=== PATIENT | male | born 1960 | race African-American/Black ===

== ENCOUNTER 2022-01-15 13:30 | Emergency (ER) | payer OTHER ==
[~2022-01-15] VITALS: Ht 182.9 cm; Wt 120.0 kg
[2022-01-15] MEDS ORDERED: FLUORESCEIN SODIUM 1MG/STRIP BOTHEYE ONE (16:30)
[2022-01-15] MEDS ORDERED: TETRACAINE 0.5% OPHTH DROPS 4ML BOTHEYE ONE (16:30)
[2022-01-15 17:50] VITALS: BP 101/58
== END 2022-01-15 17:50 | disposition home or self-care (01) ==
LOC: ER 13:30
DX: H33.22 Serous retinal detachment, left eye (principal)
CPT/HCPCS: 76512; 99291

== ENCOUNTER 2022-03-05 10:33 | Emergency (ER) | payer MEDICAID, OTHER ==
[~2022-03-05] VITALS: Ht 185.4 cm; Wt 120.0 kg
[2022-03-05 10:52] VITALS: BP 131/79
[2022-03-09] MEDS ORDERED: DORZ10DR8 LEFTEYE (17:12)
[2022-03-09] MEDS ORDERED: BRIM5DRO6 LEFTEYE (17:12)
[2022-03-09] MEDS ORDERED: BRIM10DR18 LEFTEYE (17:41)
[2022-03-13] MEDS ORDERED: AMLO5TAB88 PO (14:07)
[2022-03-13] MEDS ORDERED: LIP40 PO (14:07)
== END 2022-03-05 12:19 | disposition home or self-care (01) ==
LOC: ER 10:33
DX: G56.02 Carpal tunnel syndrome, left upper limb (principal); I10 Essential (primary) hypertension
CPT/HCPCS: 99281

== ENCOUNTER 2022-03-07 11:36 | Inpatient (IN) | payer OTHER ==
[~2022-03-07] VITALS: Ht 185.4 cm; Wt 123.8 kg
[2022-03-07] MEDS ORDERED: IOHEXOL-350 100 ML BOTTLE ONE (12:13)
[2022-03-07 12:31] LABS: BASOPHILS % 0.7 % (0.0-2.0); EOSINOPHILS % 3.6 % (0.0-5.0); HEMATOCRIT. 41.5 % (42.0-52.0); MEAN CORPUSCULAR HEMOGLOBIN 32.7 pg (28.0-32.0); MEAN CORPUSCULAR VOLUME 96.7 fL (80.0-94.0); MEAN PLATELET VOLUME 8.1 fl (7.4-10.4); NEUTROPHILS % 47.7 % (40.0-76.0); PLATELET 182 x1000/uL (130-400); RED BLOOD CELL COUNT 4.29 mill/uL (4.7-6.1); RED CELL DISTRIBUTION WIDTH 13.5 % (11.6-14.6)
[2022-03-07 12:40] LABS: CHLORIDE 110 mEq/L (98-107)
[2022-03-07 12:49] LABS: ETHANOL BLOOD < 10 mg/dL
[2022-03-07] MEDS ORDERED: CALCIUM CHLORIDE 1GM/10ML SYR IV ONE (14:30)
[2022-03-07] MEDS ORDERED: ASPIRIN 81MG TABLET PO ONE (14:45)
[2022-03-07 20:00] VITALS: BP 134/75
[2022-03-07] MEDS ORDERED: ATORVASTATIN CALCIUM 40MG TABLET PO SCH (21:00)
[2022-03-07] MEDS ORDERED: IBUP-2029 MT (21:04)
[2022-03-07] MEDS ORDERED: HYDR-4350 MT (21:04)
[2022-03-07] MEDS ORDERED: DOCUSATE SODIUM 100MG CAPSULE PO PRN (21:30)
[2022-03-07] MEDS ORDERED: GUAIFENESIN 200MG/10ML SUGAR FREE UDC PO PRN (21:30)
[2022-03-07] MEDS ORDERED: DEXTROSE 50% WATER 50ML SYRINGE IV PRN (21:30)
[2022-03-07] MEDS ORDERED: ACETAMINOPHEN 650MG/20.3ML UDC GT PRN (21:30)
[2022-03-07] MEDS ORDERED: ACETAMINOPHEN 325MG TABLET PO PRN (21:30)
[2022-03-07] MEDS ORDERED: ONDANSETRON HCL 4MG/2ML INJ IV PRN (21:30)
[2022-03-07] MEDS ORDERED: IPRATROPIUM/ALBUTEROL 0.5-3(2.5)MG/3ML NEB HHN SCH (22:00)
[2022-03-07] MEDS ORDERED: SODIUM POLYSTYRENE SULFONATE 15 G/60 ML BOT PO NR (22:00)
[2022-03-07 22:53] LABS: CLARITY URINE CLEAR (CLEAR); COLOR URINE YELLOW (YELLOW); KETONES URINE NEGATIVE (NEGATIVE); LEUKOCYTE ESTERASE URINE NEGATIVE (NEGATIVE); NITRITE URINE NEGATIVE (NEGATIVE); OCCULT BLOOD URINE NEGATIVE (NEGATIVE); PH URINE 6.5 (4.5-8.0); PROTEIN URINE NEGATIVE (NEGATIVE); SPECIFIC GRAVITY URINE 1.017 (1.005-1.030); UROBILINOGEN URINE 0.2 E.U./dL (0.2-1.0)
[2022-03-07 22:56] LABS: FOLIC ACID (FOLATE) SERUM 16.4 ng/mL (>5.38)
[2022-03-07] MEDS ORDERED: ENOXAPARIN 40MG/0.4ML SYR SUBCUT SCH (23:00)
[2022-03-07 23:07] LABS: *AMPHETAMINES SCREEN URINE NEGATIVE (NEGATIVE); *BARBITURATES SCREEN URINE NEGATIVE (NEGATIVE); *BENZODIAZEPINES SCREEN URINE NEGATIVE (NEGATIVE); *COCAINE SCREEN URINE NEGATIVE (NEGATIVE); CANNABINOID URINE SCREEN NEGATIVE (NEGATIVE); METHADONE URINE SCREEN NEGATIVE (NEGATIVE); OPIATES URINE SCREEN NEGATIVE (NEGATIVE); PHENCYCLIDINE URINE SCREEN NEGATIVE (NEGATIVE)
[2022-03-07] MEDS: HYDROCODONE/ACETAMINOPHEN 5/325MG TABLET PO PRN (23:33)
[2022-03-08] VITALS: BP 124/77
[2022-03-08 01:36] LABS: CREATINE KINASE 151 IU/L (39-308); CREATINE KINASE MB FRACTION < 1.0 ng/mL (0.5-3.6)
[2022-03-08 04:00] VITALS: BP 130/78
[2022-03-08 07:02] LABS: CHLORIDE 106 mEq/L (98-107)
[2022-03-08 07:17] LABS: BASOPHILS % 0.5 % (0.0-2.0); HEMATOCRIT. 38.8 % (42.0-52.0); HEMOGLOBIN. 13.1 g/dL (14.0-18.0); MEAN CORPUSCULAR HEMOGLOBIN 32.6 pg (28.0-32.0); MEAN CORPUSCULAR VOLUME 96.1 fL (80.0-94.0); MEAN PLATELET VOLUME 8.3 fl (7.4-10.4); MONOCYTES % 10.1 % (2.0-8.0); NEUTROPHILS % 46.4 % (40.0-76.0); PLATELET 178 x1000/uL (130-400); RED BLOOD CELL COUNT 4.03 mill/uL (4.7-6.1); RED CELL DISTRIBUTION WIDTH 13.7 % (11.6-14.6)
[2022-03-08] MEDS ORDERED: BLOOD SUGAR DIAGNOSTIC STRIP TEST SCH (07:20)
[2022-03-08 08:05] VITALS: BP 132/85
[2022-03-08 08:12] LABS: CREATINE KINASE 120 IU/L (39-308); CREATINE KINASE MB FRACTION 1.1 ng/mL (0.5-3.6); LDL CHOLESTEROL 112 mg/dL (5-100)
[2022-03-08 08:26] LABS: HDL CHOLESTEROL 47 mg/dL (40-59)
[2022-03-08 08:47] VITALS: BP 132/85
[2022-03-08] MEDS: HYDROCODONE/ACETAMINOPHEN 5/325MG TABLET PO PRN (08:47)
[2022-03-08] MEDS ORDERED: MAGNESIUM/ALUMINUM HYDROXIDE/SIMETHICONE 30ML UDC PO PRN (09:00)
[2022-03-08] MEDS ORDERED: ASPIRIN 81MG EC TABLET PO SCH (09:00)
[2022-03-09] MEDS ORDERED: DORZ10DR8 LEFTEYE (17:12)
[2022-03-09] MEDS ORDERED: BRIM5DRO6 LEFTEYE (17:12)
[2022-03-09] MEDS ORDERED: BRIM10DR18 LEFTEYE (17:41)
[2022-03-13] MEDS ORDERED: LIP40 PO (14:07)
[2022-03-13] MEDS ORDERED: AMLO5TAB88 PO (14:07)
== END 2022-03-08 12:44 | disposition left against medical advice (07) | DRG 47 ==
LOC: ER 11:44 → EDBEDREQ 14:34 → EDBEDREQTM 14:34 → 6WST 21:40
PROVIDERS: ADMIT Internal Medicine Nephrology; ATTEND Internal Medicine Nephrology
DX: G45.9 Transient cerebral ischemic attack, unspecified (principal); E87.5 Hyperkalemia; K57.90 Diverticulosis of intestine, part unspecified, without perforation or abscess without bleeding; M54.30 Sciatica, unspecified side; I10 Essential (primary) hypertension; R73.03 Prediabetes; F17.210 Nicotine dependence, cigarettes, uncomplicated; H33.20 Serous retinal detachment, unspecified eye; Z80.0 Family history of malignant neoplasm of digestive organs; Z53.29 Procedure and treatment not carried out because of patient's decision for other reasons
CPT/HCPCS: 36415; 70496; 70498; 71045; 80053; 80061; 80305; 80320; 81003; 82550; 82553; 82607; 82746; 82962; 83036; 83880; 84484; 85025; 85379; 93005; 93306; 99291; J3490; Q9967; G0480

== ENCOUNTER 2022-06-02 18:05 | Emergency (ER) | payer OTHER ==
[~2022-06-02] VITALS: Ht 185.4 cm; Wt 127.0 kg
[~2022-06-02 18:05] MED LIST: AMLO5TAB88 PO; BRIM10DR18 LEFTEYE; DORZ10DR8 LEFTEYE; HYDR-4350 MT; IBUP-2029 MT; LIP40 PO
[2022-06-02] MEDS ORDERED: CYCL10TA21 MT (22:04)
[2022-06-02] MEDS ORDERED: KETOROLAC 60MG/2ML VIAL IM ONE (22:15)
[2022-06-02 22:40] VITALS: BP 112/60
== END 2022-06-02 22:50 | disposition home or self-care (01) ==
LOC: ER 18:05
DX: S16.1XXA Strain of muscle, fascia and tendon at neck level, initial encounter (principal); S13.8XXA Sprain of joints and ligaments of other parts of neck, initial encounter; I10 Essential (primary) hypertension; G62.9 Polyneuropathy, unspecified; M54.30 Sciatica, unspecified side; V43.52XA Car driver injured in collision with other type car in traffic accident, initial encounter; Y93.89 Activity, other specified; Y92.488 Other paved roadways as the place of occurrence of the external cause
CPT/HCPCS: 96372; 99283; J1885

== ENCOUNTER 2022-11-23 07:33 | Emergency (ER) | payer MEDICAID, OTHER ==
[~2022-11-23] VITALS: Ht 185.4 cm; Wt 126.0 kg
[~2022-11-23 07:33] MED LIST changes: +CYCL10TA21 MT
[2022-11-23] MEDS ORDERED: DOXY100C5 MT (07:55)
[2022-11-23] MEDS ORDERED: CEFTRIAXONE SODIUM 500 MG/VIAL IM ONE (08:00)
[2022-11-23 08:26] LABS: CLARITY URINE CLEAR (CLEAR); COLOR URINE YELLOW (YELLOW); KETONES URINE NEGATIVE (NEGATIVE); LEUKOCYTE ESTERASE URINE NEGATIVE (NEGATIVE); NITRITE URINE NEGATIVE (NEGATIVE); OCCULT BLOOD URINE NEGATIVE (NEGATIVE); PROTEIN URINE NEGATIVE (NEGATIVE); SPECIFIC GRAVITY URINE 1.009 (1.005-1.030); UROBILINOGEN URINE 0.2 E.U./dL (0.2-1.0)
[2022-11-23 08:32] VITALS: BP 135/84
== END 2022-11-23 08:33 | disposition home or self-care (01) ==
LOC: ER 07:47
DX: Z20.2 Contact with and (suspected) exposure to infections with a predominantly sexual mode of transmission (principal); I10 Essential (primary) hypertension; Z98.890 Other specified postprocedural states
CPT/HCPCS: 81003; 96372; 99283; J0696; Z7610